=== PATIENT | female | born 1950 | race Caucasian/White ===

== ENCOUNTER 2016-08-03 07:21 | Emergency (ER) | payer BC, MEDICARE ==
[~2016-08-03] VITALS: Ht 157.5 cm; Wt 55.0 kg
[~2016-08-03 07:21] MED LIST: CALC600T37 PO; CHOL50006 PO; DEVIL S CLAW; OCUVTAB PO; VITA50LO PO
[2016-08-03 07:26] VITALS: BP 124/66; PULSE 120; RESP 24; TEMP 97.9; O2SAT 100
[2016-08-03] MEDS ORDERED: ONDANSETRON HCL 4 MG/2 ML VIAL IVP ONE (07:45)
[2016-08-03] MEDS ORDERED: SODIUM CHLORID 0.9% 500 ML INJ 500 ML IV ONE (07:45)
[2016-08-03] MEDS ORDERED: SODIUM CHLORIDE 0.9% FLUSH 10 ML FLUSH IV FLUSH PRN (07:45)
--- NOTE | 2016-08-03 07:55 | PD ---
HPI Chief Complaint: Abdominal Pain Time Seen by Provider: 07:52 Travel History International Travel<30 days: No Contact w/Intl Traveler<30days: No Traveled to known affect area: No History of Present Illness HPI 66-year-old female patient presents to the ER today for 1 day history of nausea , vomiting, periumbilical abdominal pain which she currently rates it a 10 out of 10. She denies any diarrhea, fevers, chest pains, shortness of breath, or any other symptoms. She does not know any exacerbating or alleviating factors. She does not know any sick contacts. Modifying Factors: None Associated Signs & Symptoms: Nausea, vomiting, periumbilical abdominal pain Risk Factors: None PFSH Past Medical History Arthritis: Yes Cancer: No Cardiovascular Problems: No Diabetes: No Endocrine: No Genitourinary: No Hepatitis: No Hiatal Hernia: No Musculoskeletal: Yes (ARTHRITIS, SHOULDER) Neurologic: No Psychiatric: No Respiratory: No Thyroid Disease: No Influenza Vaccination: Yes ?: Not Past Surgical History AICD: No Body Medical Devices: BREAST IMPLANTS Joint Replacement: No Pacemaker: No Social History Alcohol Use: Yes (DAILY) Tobacco Use: No Substance Use: No Allergies-Medications (Allergen,Severity, Reaction): Coded Allergies: Sulfa (Verified Allergy, Severe, Anaphylaxis, 08/03/16) Vancomycin (Verified Allergy, Intermediate, Swelling, , 08/03/16) Itching , anxiety, Reported Meds & Prescriptions Reported Meds & Active Scripts Active No Active Prescriptions or Reported Medications Review of Systems Except as stated in HPI: all other systems reviewed are Neg Physical Exam Narrative GENERAL: Elderly white female patient currently in moderate distress, vomiting in the ER. Awake, alert, oriented 3. SKIN: Warm and dry. HEAD: Atraumatic. Normocephalic. EYES: Pupils equal and round. No scleral icterus. No injection or drainage. ENT: No nasal bleeding or discharge. Mucous membranes pink and moist. NECK: Trachea midline. No JVD. CARDIOVASCULAR: Regular rate and rhythm. No murmur appreciated. RESPIRATORY: No accessory muscle use. Clear to auscultation. Breath sounds equal bilaterally. GASTROINTESTINAL: Abdomen soft, mild periumbilical tenderness without guarding or rebound, nondistended. Hepatic and splenic margins not palpable. MUSCULOSKELETAL: No obvious deformities. No clubbing. No cyanosis. No edema. NEUROLOGICAL: Awake and alert. No obvious cranial nerve deficits. Motor grossly within normal limits. Normal speech. PSYCHIATRIC: Appropriate mood and affect; insight and judgment normal. Data Data Last Documented VS Vital Signs Date Time Temp Pulse Resp B/P Pulse Ox O2 Delivery O2 Flow Rate FiO2 08/03/16 08:00 98 Room Air 08/03/16 08:00 98.5 62 16 115/68 Orders Urinalysis - C+S If Indicated (08/03/16 07:33) Complete Blood Count With Diff (08/03/16 07:34) Comprehensive Metabolic Panel (08/03/16 07:34) Lipase (08/03/16 07:34) Iv Access Insert/Monitor (08/03/16 07:34) Ecg Monitoring (08/03/16 07:34) Oximetry (08/03/16 07:34) Ondansetron Inj (Zofran Inj) (08/03/16 07:45) Sodium Chloride 0.9% Flush (Ns Flush) (08/03/16 07:45) Sodium Chlorid 0.9% 500 Ml Inj (Ns 500 M (08/03/16 07:45) Hydromorphone Pf Inj (Dilaudid Pf Inj) (08/03/16 08:00) Ct Abd/Pel W Iv Contrast(Rout) (08/03/16 ) Influenzae A/B Antigen (08/03/16 07:53) Iohexol 350 Inj (Omnipaque 350 Inj) (08/03/16 09:17) Labs Laboratory Tests Test 08/03/16 08/03/16 08:05 08:15 Urine Collection Type CLEAN CATCH Urine Color YELLOW Urine Turbidity CLEAR Urine pH 7.0 Urine Specific [place] 1.024 Urine Protein TRACE mg/dL Urine Glucose (UA) NEG mg/dL Urine Ketones 80 OR GREATER mg/dL Urine Occult Blood NEG Urine Nitrite NEG Urine Bilirubin NEG Urine Leukocyte Esterase NEG Urine RBC 0-3 /hpf Urine WBC 0-2 /hpf Urine Squamous Epithelial 0-5 /hpf Cells Microscopic Urinalysis Comment CULT NOT INDICATED Urine Collection Time 08:05 White Blood Count 8.9 TH/MM3 Red Blood Count 4.01 MIL/MM3 Hemoglobin 13.6 GM/DL Hematocrit 39.4 % Mean Corpuscular Volume 98.2 FL Mean Corpuscular Hemoglobin 33.8 PG Mean Corpuscular Hemoglobin 34.4 % Concent Red Cell Distribution Width 12.0 % Platelet Count 253 TH/MM3 Mean Platelet Volume 8.1 FL Neutrophils (%) (Auto) 85.3 % Lymphocytes (%) (Auto) 10.5 % Monocytes (%) (Auto) 2.1 % Eosinophils (%) (Auto) 0.1 % Basophils (%) (Auto) 2.0 % Neutrophils # (Auto) 7.6 TH/MM3 Lymphocytes # (Auto) 0.9 TH/MM3 Monocytes # (Auto) 0.2 TH/MM3 Eosinophils # (Auto) 0.0 TH/MM3 Basophils # (Auto) 0.2 TH/MM3 CBC Comment DIFF FINAL Differential Comment Sodium Level 143 MEQ/L Potassium Level 4.0 MEQ/L Chloride Level 106 MEQ/L Carbon Dioxide Level 28.1 MEQ/L Anion Gap 9 MEQ/L Blood Urea Nitrogen 15 MG/DL Creatinine 0.76 MG/DL Estimat Glomerular Filtration 76 ML/MIN Rate Random Glucose 149 MG/DL Calcium Level 8.9 MG/DL Total Bilirubin 0.5 MG/DL Aspartate Amino Transf 19 U/L (AST/SGOT) Alanine Aminotransferase 18 U/L (ALT/SGPT) Alkaline Phosphatase 66 U/L Total Protein 7.6 GM/DL Albumin 4.2 GM/DL Lipase 120 U/L [facility] Medical Decision Making Medical Screen Exam Complete: Yes Emergency Medical Condition: Yes Medical Record Reviewed: Yes Interpretation(s) Laboratory Tests Test 08/03/16 08/03/16 08:05 08:15 Urine Ketones 80 OR GREATER mg/dL (NEG) Neutrophils (%) (Auto) 85.3 % (16.0-70.0) Lymphocytes # (Auto) 0.9 TH/MM3 (1.0-4.8) Estimat Glomerular Filtration 76 ML/MIN (>89) Rate Random Glucose 149 MG/DL (74-106) Last 24 hours Impressions Abdomen/Pelvis CT 08/03/16 0000 Signed Impressions: Service Date/Time: Wednesday, August 03, 2016 08:59 - CONCLUSION: Findings consistent with acute sigmoid diverticulitis and adjacent ileus of the small bowel without evidence of bowel obstruction. No evidence of abscess.. Robyn Abdul MD Differential Diagnosis Nausea, vomiting, periumbilical abdominal painsgastritis versus gastritis versus pancreatitis versus acute obstruction versus dehydration versus metabolic issues Narrative Course Lab work did not indicate significant leukocytosis or significant dehydration or laterally abnormalities. Patient was given IV fluids, Zofran, and Dilaudid in the ER. CAT scan shows a diverticulitis without diverticular abscess. She has some mild ileus around the area of inflammation. No signs of significant obstruction. Patient on reevaluation at 9:40 AM, is feeling improved, has not had further episodes of vomiting in the ER. Abdomen is still fairly benign on exam. I have talked her about findings and have offered to admit her to the hospital for diverticulitis and mild ileus. However, patient states she is feeling much improved and declining at this time. I have talked her about the fact that the ileus can worsen and that I will release her with symptomatic relief or her nausea vomiting and pain. However, she should return if she explains this worsening in condition. She should return for any worsening in pain, fevers, vomiting, and as needed. The risk and observation admission versus outpatient therapy has been discussed with her and she states understanding, wants outpatient therapy. She should follow-up with her primary care physician and GI doctor as well. Diagnosis Primary Impression: Diverticulitis Med/Other Pt SpecificInfo: Prescription(s) given Scripts Ondansetron Odt (Zofran Odt)4 Mg Tab4 Mg SL Q6HR PRN (Nausea/Vomiting) #7 TAB Ref 0 Prov:Sarahy Taylor MD 08/03/16 Metronidazole (Flagyl)500 Mg [id number] Mg PO TID 7 Days Ref 0 Prov:Sarahy Taylor MD 08/03/16 Ciprofloxacin (Cipro)500 Mg [id number] Mg PO BID 7 Days Ref 0 Prov:Sarahy Taylor MD 08/03/16 Hydrocodone-Acetaminophen (Lortab)5-325 Mg Tab1-2 Tab PO Q6H PRN (PAIN) #12 TAB Ref 0 Prov:Sarahy Taylor MD 08/03/16 Ibuprofen (Motrin Ib)200 Mg [id number] Mg PO Q6H PRN (PAIN SCALE 1 TO 10) #30 TAB Ref 0 Prov:Sarahy Taylor MD 08/03/16 Disposition: 01 DISCHARGE HOME Condition: Stable Sarahy Taylor MD Aug 03, 2016 07:55
[2016-08-03 08:00] VITALS: BP 115/68; PULSE 62; RESP 16; TEMP 98.5; O2SAT 98
[2016-08-03] MEDS ORDERED: HYDROmorphone HCL PF 1 MG/ML VIAL IV PUSH ONE (08:00)
[2016-08-03 08:29] LABS: BLOOD, URINE NEG (NEG); GLUCOSE,URINE NEG (NEG); NITRITE,URINE NEG (NEG)
[2016-08-03 08:33] LABS: AUTOMATED NEUTROPHIL # 7.6 TH/MM3 (1.8-7.7); BASOPHIL # 0.2 TH/MM3 (0-0.2); EOSINOPHIL % 0.1 % (0.0-4.0); HEMATOCRIT 39.4 % (35.0-46.0); HEMO FLAGS DIFF FINAL; LYMPH % 10.5 % (9.0-44.0); LYMPHOCYTE # 0.9 TH/MM3 (1.0-4.8); MEAN CELL VOLUME 98.2 FL (80.0-100.0); MEAN CORPUSCULAR HEMOGLOBIN 33.8 PG (27.0-34.0); MEAN CORPUSCULAR HGB CONC 34.4 % (32.0-36.0); MONO % 2.1 % (0.0-8.0); NEUT % 85.3 % (16.0-70.0); PLATELET COUNT 253 TH/MM3 (150-450); RED BLOOD COUNT 4.01 MIL/MM3 (4.00-5.30); WHITE BLOOD COUNT 8.9 TH/MM3 (4.0-11.0)
[2016-08-03 08:35] LABS: KETONE, URINE 80 OR GREATER mg/dL (NEG); METHOD OF COLLECTION CLEAN CATCH; URINE COLOR YELLOW (YELLW/STRAW)
[2016-08-03 08:36] LABS: COMMENT (UR) CULT NOT INDICATED; CULTURE IF INDICATED CULT NOT INDICATED; RBC, URINE 0-3 /hpf (0-3); SQUAMOUS EPITHELIAL CELL URINE 0-5 /hpf (0-5); WBC, URINE 0-2 /hpf (0-5)
[2016-08-03 08:38] LABS: CHLORIDE 106 MEQ/L (98-107); SODIUM (NA) 143 MEQ/L (136-145)
[2016-08-03 08:41] LABS: ANION GAP 9 MEQ/L (5-15); BICARBONATE 28.1 MEQ/L (21.0-32.0)
[2016-08-03 08:42] LABS: BLOOD UREA NITROGEN 15 MG/DL (7-18)
[2016-08-03 08:44] LABS: ALT (GPT) 18 U/L (10-53); AST (GOT) 19 U/L (15-37); GLOMERULAR FILTRATION RATE 76 ML/MIN (>89)
[2016-08-03 08:46] LABS: TOTAL BILIRUBIN ADULT 0.5 MG/DL (0.2-1.0)
[2016-08-03 08:47] LABS: ALKALINE PHOSPHATASE 66 U/L (45-117)
[2016-08-03] MEDS ORDERED: IOHEXOL 350 MG/ML 10 ML VIAL (for RAD DIAG) IV ONE (09:17)
--- NOTE | 2016-08-03 09:31 | RADHPO ---
EXAM DATE/TIME: 08/03/2016 08:59 [facility] COMPARISON: No previous studies available for comparison. INDICATIONS : Mid abdomen pain, vomiting. IV CONTRAST: 90 cc Omnipaque 350 (iohexol) IV ORAL CONTRAST: No oral contrast ingested. RADIATION DOSE: 5.25 CTDIvol (mGy) MEDICAL HISTORY : None SURGICAL HISTORY : None. ENCOUNTER: Initial ACUITY: 1 day PAIN SCALE: 5/10 LOCATION: Abdomen TECHNIQUE: Volumetric scanning of the abdomen and pelvis was performed. Using automated exposure control and ad justment of the mA and/or kV according to patient size, radiation dose was kept as low as reasonably achievable to obtain optimal diagnostic quality images. FINDINGS: LOWER LUNGS: The visualized lower lungs are clear with the exception of mild dependent atelectasis. LIVER: Homogeneous density without lesion. There is no dilation of the biliary tree. No calcified gallston es. SPLEEN: Normal size without lesion. PANCREAS: Within normal limits. KIDNEYS: Normal in size and shape. There is no mass, stone or hydronephrosis. ADRENAL GLANDS: Within normal limits. VASCULAR: There is no aortic aneurysm. BOWEL/MESENTERY: There is a segment of sigmoid colon with extensive diverticuli and adjacent mild stranding of the mes enteric fat suggestive of acute diverticulitis. There is trace amount of free fluid identified within the posterior cul-de-sac and there is fluid-filled nondilated ileum seen centrally within the pelvis consistent with an ileus. No evidence of obstruction. A ABDOMINAL WALL: Within normal limits. RETROPERITONEUM: There is no lymphadenopathy. BLADDER: No wall thickening or mass. REPRODUCTIVE: Within normal limits. INGUINAL: There is no lymphadenopathy or hernia. MUSCULOSKELETAL: Within normal limits for patient age. CONCLUSION: Findings consistent with acute sigmoid diverticulitis and adjacent ileus of the small bowel without e vidence of bowel obstruction. No evidence of abscess.. Robyn Abdul MD on August 03, 2016 at 9:25 Board Certified Radiologist. This report was verified electronically.
[2016-08-03 09:40] VITALS: BP 93/46
[2016-08-03] MEDS ORDERED: CIPR-9 PO (09:47)
[2016-08-03] MEDS ORDERED: HYDR-3533 PO (09:47)
[2016-08-03] MEDS ORDERED: METR-1 PO (09:47)
[2016-08-03] MEDS ORDERED: MOTR200T4 PO (09:47)
[2016-08-03] MEDS ORDERED: ZOFR4TAB3 SL (09:47)
--- NOTE | 2016-08-03 10:42 | HHI.FPPN ---
Addendum to progress note ADDENDUM Reason for addendum: Additonal documentation Additional information Called patient at 13:35 on 08/03/2016. Her abdominal pain in better and she is not having any N or V. She was seen earlier in the AM for abd pain, and N and V. CT scan done at that time showed: "Acute sigmoid diverticulitis and adjacent ileus of small bowel without evidence of bowel obstruction. No evidence of abscess." She says that ciprofloxacin does not work very well for her or her family members. Since she has a sulfa allergy (anaphylactic) we will avoid that Bactrim. We will write for Augmentin 875/125 mg PO q 12 hours which should be effective at covering for Gram Negs (i.e. e coli) and anaerobes. We reviewed warning signs and symptoms that would warrant her to come back to the ED. DEVENDRA Thomas. Dhiraj Escobar MD R2 Aug 03, 2016 10:42
== END 2016-08-03 10:14 | disposition home or self-care (01) ==
LOC: PHED 07:21
DX: K57.32 Diverticulitis of large intestine without perforation or abscess without bleeding (principal)
CPT/HCPCS: 74177; 80053; 81001; 83690; 85025; 87804; 96361; 96374; 96375; 99284; J1170; J2405; J7040; Q9967